=== PATIENT | male | born 1930 | race Caucasian/White ===

== ENCOUNTER 2019-07-13 09:58 | Observation (INO) ==
[2019-07-13 11:25] LABS: Basophils % 0.3 % (0.1-2.0); Eosinophils % 0.2 % (0.1-12.0); Hematocrit 49.6 % (42.0-52.0); Hemoglobin 16.2 g/dL (14.1-18.0); Lymphocytes # 0.8 K/mm3 (0.7-4.5); Lymphocytes % 6.7 % (10-50); Mean Corpuscular HGB Conc 32.6 g/dL (31.8-35.4); Mean Corpuscular Volume 91.6 fl (80-94); Mean Platelet Volume 7.1 fl (7.4-10.4); Monocytes # 1.1 K/mm3 (0.1-1.0); Monocytes % 9.2 % (1.7-9.3); Neutrophils # 10.3 K/mm3 (1.8-7.8); Neutrophils % 83.6 % (37.0-80.0); Platelet Count 240 K/mm3 (142-424); Red Blood Count 5.42 M/mm3 (4.60-6.20); Red Cell Distribution Width 15.2 % (11.5-17.5); White Blood Count 12.3 K/mm3 (4.8-10.8)
[2019-07-13 11:35] LABS: Albumin Level 3.6 gm/dL (3.4-5.0); Albumin/Globulin Ratio 0.9 (1.1-1.8); Anion Gap 15.6 mEq/L (5-15); Bilirubin,Total 1.2 mg/dL (0.2-1.0); Calcium 9.5 mg/dL (8.5-10.1); Total Protein,Serum 7.6 gm/dL (6.4-8.2)
--- NOTE | 2019-07-13 12:05 | Pharmacy Consult Notes ---
[facility] Pharmacy VTE Monitoring - Patient Demographics Admission date: 07/13/19 Report Date: 07/13/19 Time: 12:05 Allergies/Adverse Reactions: Patient Allergies Penicillins Allergy (Verified 05/19/19 14:17) Height: 1.7 m Weight: 78.188 kg - VTE Risk Labs: VTE Related Lab Results Hgb 16.2 g/dL (14.1-18.0) 07/13/19 11:00 Hct 49.6 % (42.0-52.0) 07/13/19 11:00 Plt Count 240 K/mm3 (142-424) 07/13/19 11:00 BUN 24 mg/dL (7-18) H 07/13/19 11:00 Creatinine 1.81 mg/dL (0.70-1.30) H 07/13/19 11:00 Estimated Creat Clear 31 mL/min (50-200) 07/13/19 11:00 Was VTE Risk Assessment Performed: Yes VTE Score: 2 Clinical Trial Participant: No - Prophylaxis VTE Prophylaxis Ordered?: Yes Types of VTE Prophylaxis: TEDS Knee High
--- NOTE | 2019-07-13 12:58 | History & Physical Report ---
*Admission Date: 07/13/19 <Beverly Ruvalcaba 07/13/19 13:04> *Chief complaint: AMS, vomiting/diarrhea <Andrew Ruvalcaba07/13/19 13:04> *History of present illness: Mr. Brown is an 88-year-old male who presented to the office of [facility] today with 2 days of altered mental status, weakness, vomiting and diarrhea, and a cough. His urinalysis showed trace amounts of blood and protein. He appeared very dehydrated. His blood pressure was low at 90/50 and it was felt he would need admission for IV fluids and further testing. The patient was seen by both Dr. Ervin and Dr. Arriaga. <Beverly Ruvalcaba 07/13/19 13:04> [facility] History I have reviewed the patient's past medical history: Yes <Beverly Ruvalcaba 07/13/19 13:04> Medical History: Reports:: Atrial Fibrillation, Cardiomyopathy, Congestive Heart Failure, Hyperlipidemia, Hypertension, Renal Insufficiency, Valvular Heart Disease Denies:: Cancer, Diabetes Mellitus Type 1, Diabetes Mellitus Type 2, Internal Pacemaker, MRSA, Seizures <Andrew Ruvalcaba07/13/19 13:04> *Have you ever received a pneumonia vaccine?: Yes <Beverly Ruvalcaba 07/13/19 13:04> *Have you received a flu vaccine this season?: Yes <Andrew Ruvalcaba07/13/19 13:04> Other Medical History: Reports: Arthritis. Denies: Blood Transfusion Reaction <Beverly Ruvalcaba 07/13/19 13:04> Laterality Cases: Left: Other <Beverly Ruvalcaba 07/13/19 13:04> Other Surgeries: Yes: Cardiac Catheterization, Cholecystectomy, Skin Cancer Excision, Other (Prostate removed, cystoscopy). No: Pacemaker <Beverly Ruvalcaba 07/13/19 13:04> Amputation: No <Beverly Ruvalcaba 07/13/19 13:04> Fractures: No <Andrew Ruvalcaba07/13/19 13:04> - *Social History Educational Level: Attended Grade School <Beverly Ruvalcaba 07/13/19 13:04> Smoking Status: Former smoker <Beverly Ruvalcaba 07/13/19 13:04> Tobacco Type: cigarettes <Beverly Ruvalcaba 07/13/19 13:04> [facility] Intake: never [facility]> Alcohol Intake Frequency:: other [facility] 13:04> Substance Use Type: denies use <[facility] 07/13/[facility] 13:04> *Occupational Status:: retired <[facility] 07/13/19 13:04> Housing: house <[facility] 07/13/[facility] 13:04> Household Members: none <[facility] 07/13/[facility] 13:04> *Travel in the last 8 weeks: None <[facility] 07/13/19 13:04> Family Hx:: Hyperlipidemia, Hypertension <[facility] 07/13/19 13:04> Review of Systems - Constitutional Reports fatigue, Reports weakness, Denies body ache(s), Denies fever(s) <[facility] 07/13/19 13:04> - Eyes Denies blurry vision, Denies double vision <[facility] 07/13/19 13:04> - ENT Denies nasal congestion, Denies sore throat <[facility] 07/13/19 13:04> - *Cardiovascular Reports shortness of breath, Denies chest pain at rest <[facility] 07/13/19 13:04> - *Respiratory Reports cough, Reports shortness of breath, Reports wheezing <[facility] 07/13/19 13:04> - *Gastrointestinal Reports loose stools, Reports nausea, Reports vomiting, Denies abdominal pain <[facility]/13[facility] 13:04> - *Genitourinary Reports urinary frequency, Denies difficulty urinating, Denies painful urination <[facility] 07/13/19 13:04> - *Musculoskeletal Denies joint pain <[facility]/13/19 13:04> - *Neurologic Reports unsteadiness, Reports weakness, Denies headache(s) <[facility] 07/13/19 13:04> Meds Home Medications Medication Instructions Recorded Confirmed Type Tramadol HCl [Ultram 50mg tablet] 100 mg PO Q6HP PRN 07/20/17 07/13/19 History Digoxin [Digoxin 0.125mg Tablet] 125 mcg PO DAILY 04/12/19 07/13/19 History Rivaroxaban [Xarelto 15mg tablet] 15 mg PO PM 04/12/19 07/13/19 History Spironolactone [Aldactone 25mg 25 mg PO DAILY 04/12/19 07/13/19 History Tab] lisinopriL [Zestril 2.5mg Tablet] 2.5 mg PO DAILY 04/12/19 07/13/19 History Furosemide [Furosemide 40MG tAB] 40 mg PO DAILY 07/13/19 07/13/19 History Metoprolol Succinate 100 mg PO DAILY 07/13/19 07/13/19 History <Sanjay Ervin - 07/13/19 13:37> Allergies Allergy/AdvReac Type Severity Reaction Status Date / Time Penicillins Allergy Verified 05/19/19 14:17 <Sanjay Ervin - 07/13/19 13:37> Exam Vital signs and Labs for Last 24 Hours: Temp Pulse Resp BP Pulse Ox 98.4 F 95 H 18 102/66 L 91 L 07/13/19 11:07 07/13/19 11:07 07/13/19 11:07 07/13/19 11:07 07/13/19 11:07 Laboratory Results - last 24 hr 07/13/19 11:00: WBC 12.3 H, RBC 5.42, Hgb 16.2, Hct 49.6, MCV 91.6, MCH 29.9, MCHC 32.6, RDW 15.2, Plt Count 240, MPV 7.1 L, Neut % (Auto) 83.6 H, Lymph % (Auto) 6.7 L, [place] % (Auto) 9.2, Eos % (Auto) 0.2, Baso % (Auto) 0.3, Neut # (Auto) 10.3 H, Lymph # (Auto) 0.8, [place] # (Auto) 1.1 H, Eos # (Auto) 0.0, Baso # (Auto) 0.0 07/13/19 11:00: Sodium 137, Potassium 4.6, Chloride 100, Carbon Dioxide 26, Anion Gap 15.6 H, BUN 24 H, Creatinine 1.81 H, Estimated Creat Clear 31, Estimated GFR 35 L, Est GFR ( Amer) 43 L, Glucose 112 H, Calcium 9.5, Total Bilirubin 1.2 H, AST 21, ALT 21, Alkaline Phosphatase 48, Total Protein 7.6, Albumin 3.6, Globulin 4.0 H, Albumin/Globulin Ratio 0.9 L 07/13/19 11:00: Lactate 1.4 <AzizaSanjay - 07/13/19 13:37> Temp Pulse Resp BP Pulse Ox 98.4 F 95 H 18 102/66 L 91 L 07/13/19 11:07 07/13/19 11:07 07/13/19 11:07 07/13/19 11:07 07/13/19 11:07 Laboratory Results - last 24 hr 07/13/19 11:00: WBC 12.3 H, RBC 5.42, Hgb 16.2, Hct 49.6, MCV 91.6, MCH 29.9, MCHC 32.6, RDW 15.2, Plt Count 240, MPV 7.1 L, Neut % (Auto) 83.6 H, Lymph % (Auto) 6.7 L, [place] % (Auto) 9.2, Eos % (Auto) 0.2, Baso % (Auto) 0.3, Neut # (Auto) 10.3 H, Lymph # (Auto) 0.8, [place] # (Auto) 1.1 H, Eos # (Auto) 0.0, Baso # (Auto) 0.0 07/13/19 11:00: Sodium 137, Potassium 4.6, Chloride 100, Carbon Dioxide 26, An ion Gap 15.6 H, BUN 24 H, Creatinine 1.81 H, Estimated Creat Clear 31, Estimated GFR 35 L, Est GFR ( Amer) 43 L, Glucose 112 H, Calcium 9.5, Total Bilirubin 1.2 H, AST 21, ALT 21, Alkaline Phosphatase 48, Total Protein 7.6, Albumin 3.6, Globulin 4.0 H, Albumin/Globulin Ratio 0.9 L 07/13/19 11:00: Lactate 1.4 <Beverly Ruvalcaba - 07/13/19 13:04> I & O for Last 24 hours: Intake & Output 07/11/19 07/12/19 07/13/1920 11:59 11:59 11:59 11:59 Weight 172 lb 6 oz <Sanjay Ervin 07/13/19 13:37> Intake & Output 07/11/19 07/12/19 07/13/19 07/14/19 11:59 11:59 11:59 11:59 Weight 172 lb 6 oz <Beverly Ruvalcaba 07/13/19 13:04> - Constitutional Comments: Does not appear to feel well <Beverly Ruvalcaba 07/13/19 13:04> - *Routine HEENT Exam Head: Present: normocephalic <SidneycourtneyBeverly - 07/13/19 13:04> Eye: Present: EOMI, PERRL <SidneycourtneyBeverly - 07/13/19 13:04> ENT: Present: mucous membranes dry <SidneycourtneyBeverly 07/13/19 13:04> - *Routine Neck Exam Present: supple. Absent: lymphadenopathy <JordonBeverly - 07/13/19 13:04> - *Routine Respiratory Exam Present: wheezes. Absent: rales <JordonBeverly - 07/13/19 13:04> - *Routine Cardiovascular Exam Present: RRR, irregularly irregular <SidneycourtneyBeverly 07/13/19 13:04> - *Routine Abdominal Exam Present: soft, normoactive bowel sounds. Absent: tenderness <JordonBeverly - 07/13/19 13:04> - *Routine Extremities Exam Present: edema (1+ leg edema bilaterally). Absent: cyanosis, clubbing <JordonBeverly - 07/13/19 13:04> - *Routine Skin Exam Present: pallor, warm. Absent: rash <JordonBeverly - 07/13/19 13:04> - *Routine Neurological Exam Present: alert <JordonBeverly 07/13/19 13:04> Awake and can answer questions, but gets very confused <JordonBeverly - 07/13/19 13:04> H&P: Result - Impressions CXR - Minimal left basilar atelectasis otherwise negative <JordonBeverly - 07/13/19 13:04> Assessment and Plan (1) Vomiting and diarrhea Current visit: Yes Status: Acute Category: Medical Code(s): R11.10 - Vomiting, unspecified; R19.7 - Diarrhea, unspecified (2) Wheezing Current visit: Yes Status: Acute Category: Medical Code(s): R06.2 - Wheezing (3) Dehydration Current visit: Yes Status: Acute Category: Medical Code(s): E86.0 - Dehydration (4) Altered mental status Current visit: Yes Status: Acute Category: Medical Code(s): R41.82 - Altered mental status, unspecified (5) Atrial fibrillation Current visit: No Status: Chronic Qualifiers: Atrial fibrillation type: chronic Category: Medical Code(s): I48.91 - Unspecified atrial fibrillation (6) Cardiomyopathy Current visit: No Status: Chronic Qualifiers: Cardiomyopathy type: dilated Qualified Code(s): I42.0 - Dilated cardiomyopathy Category: Medical Code(s): I42.9 - Cardiomyopathy, unspecified (7) HLD (hyperlipidemia) Current visit: No Status: Chronic Qualifiers: Hyperlipidemia type: mixed hyperlipidemia Qualified Code(s): E78.2 - Mixed hyperlipidemia Category: Medical Code(s): E78.5 - Hyperlipidemia, unspecified (8) HTN (hypertension) Current visit: No Status: Chronic Qualifiers: Hypertension type: essential hypertension Qualified Code(s): I10 - Essential (primary) hypertension Category: Medical Code(s): I10 - Essential (primary) hypertension (9) Severe left ventricular systolic dysfunction Current visit: No Status: Chronic Category: Medical Code(s): I51.9 - Heart disease, unspecified <Beverly Ruvalcaba - 07/13/19 12:54> (1) Altered mental status Current visit: Yes Status: Acute Category: Medical Code(s): R41.82 - Altered mental status, unspecified (2) Vomiting and diarrhea Current visit: Yes Status: Acute Category: Medical Code(s): R11.10 - Vomiting, unspecified; R19.7 - Diarrhea, unspecified (3) Dehydration Current visit: Yes Status: Acute Category: Medical Code(s): E86.0 - Dehydration (4) Wheezing Current visit: Yes Status: Acute Category: Medical Code(s): R06.2 - Wheezing (5) Atrial fibrillation Current visit: No Status: Chronic Qualifiers: Atrial fibrillation type: chronic Category: Medical Code(s): I48.91 - Unspecified atrial fibrillation (6) Cardiomyopathy Current visit: No Status: Chronic Qualifiers: Cardiomyopathy type: dilated Qualified Code(s): I42.0 - Dilated cardiomyopathy Category: Medical Code(s): I42.9 - Cardiomyopathy, unspecified (7) HLD (hyperlipidemia) Current visit: No Status: Chronic Qualifiers: Hyperlipidemia type: mixed hyperlipidemia Qualified Code(s): E78.2 - Mixed hyperlipidemia Category: Medical Code(s): E78.5 - Hyperlipidemia, unspecified (8) HTN (hypertension) Current visit: No Status: Chronic Qualifiers: Hypertension type: essential hypertension Qualified Code(s): I10 - Essential (primary) hypertension Category: Medical Code(s): I10 - Essential (primary) hypertension (9) Severe left ventricular systolic dysfunction Current visit: No Status: Chronic Category: Medical Code(s): I51.9 - Heart disease, unspecified <Sanjay Ervin - 07/13/19 13:37> - Assessment and plan all Dx Assessment and Plan for all problems:: Patient seen and examined. Concur with plan for admission for work-up of his altered mental status. Likely related to acute gastroenteritis with dehydration and hypovolemia. Will rule out other potential infectious etiologies. May require CT scan of head if he does not respond to rehydration. <Sanjay Ervin - 07/13/19 13:37> CXR did not show a pneumonia. CBC showed an elevated WBC. We will go ahead and start on Levaquin as well as IV fluids and some Zofran. We will get a diarrhea panel and blood cultures. <Beverly Ruvalcaba - 07/13/19 13:04>
--- NOTE | 2019-07-14 08:11 | Progress Note ---
<Beverly Ruvalcaba - Last Filed: 07/14/19 08:10> Internal Medicine - PN: Subj *Date: 07/14/19 *Time: 08:10 Interval history: Patient seems to be doing much better today. He is more alert and awake. He states his vomiting has stopped and he has still had a few loose stools since admission. He has had a slightly productive cough but no shortness of breath. He slept decently last night and ate some breakfast this morning. He is requesting some "real food." Exam Vital signs and Labs for Last 24 Hours: Temp Pulse Resp BP Pulse Ox 99.7 F H 91 H 16 122/81 91 L 07/14/19 04:00 07/14/19 06:02 07/14/19 04:00 07/14/19 04:00 07/14/19 06:02 Laboratory Results - last 24 hr 07/13/19 11:00: WBC 12.3 H, RBC 5.42, Hgb 16.2, Hct 49.6, MCV 91.6, MCH 29.9, MCHC 32.6, RDW 15.2, Plt Count 240, MPV 7.1 L, Neut % (Auto) 83.6 H, Lymph % (Auto) 6.7 L, [place] % (Auto) 9.2, Eos % (Auto) 0.2, Baso % (Auto) 0.3, Neut # (Auto) 10.3 H, Lymph # (Auto) 0.8, [place] # (Auto) 1.1 H, Eos # (Auto) 0.0, Baso # (Auto) 0.0 07/13/19 11:00: Sodium 137, Potassium 4.6, Chloride 100, Carbon Dioxide 26, Anion Gap 15.6 H, BUN 24 H, Creatinine 1.81 H, Estimated Creat Clear 31, Estimated GFR 35 L, Est GFR ( Amer) 43 L, Glucose 112 H, Calcium 9.5, Total Bilirubin 1.2 H, AST 21, ALT 21, Alkaline Phosphatase 48, Total Protein 7.6, Albumin 3.6, Globulin 4.0 H, Albumin/Globulin Ratio 0.9 L 07/13/19 11:00: Lactate 1.4 07/13/19 11:00: Digoxin 0.94 I & O for Last 24 hours: Intake & Output 07/11/19 07/12/19 07/13/19 07/14/19 11:59 11:59 11:59 11:59 Intake Total 2523 / 2523 Output Total 100 / 100 Balance 3 / 242 Weight 172 lb 6 oz 182 lb 8 oz - Constitutional no acute distress - *Routine Respiratory Exam Present: rales (bibasilar) - *Routine Cardiovascular Exam Present: irregularly irregular - *Routine Abdominal Exam Present: soft, normoactive bowel sounds. Absent: tenderness - *Routine Extremities Exam Absent: cyanosis, clubbing, edema - *Routine Skin Exam Present: warm. Absent: rash - *Routine Neurological Exam Present: alert, oriented X3 Assessment and Plan (1) Altered mental status Current visit: Yes Status: Acute Category: Medical Code(s): R41.82 - Altered mental status, unspecified (2) Vomiting and diarrhea Current visit: Yes Status: Acute Category: Medical Code(s): R11.10 - Vomiting, unspecified; R19.7 - Diarrhea, unspecified (3) Dehydration Current visit: Yes Status: Acute Category: Medical Code(s): E86.0 - Dehydration (4) Wheezing Current visit: Yes Status: Acute Category: Medical Code(s): R06.2 - Wheezing (5) Atrial fibrillation Current visit: No Status: Chronic Qualifiers: Atrial fibrillation type: chronic Category: Medical Code(s): I48.91 - Unspecified atrial fibrillation (6) Cardiomyopathy Current visit: No Status: Chronic Qualifiers: Cardiomyopathy type: dilated Qualified Code(s): I42.0 - Dilated cardiomyopathy Category: Medical Code(s): I42.9 - Cardiomyopathy, unspecified (7) HLD (hyperlipidemia) Current visit: No Status: Chronic Qualifiers: Hyperlipidemia type: mixed hyperlipidemia Qualified Code(s): E78.2 - Mixed hyperlipidemia Category: Medical Code(s): E78.5 - Hyperlipidemia, unspecified (8) HTN (hypertension) Current visit: No Status: Chronic Qualifiers: Hypertension type: essential hypertension Qualified Code(s): I10 - Essential (primary) hypertension Category: Medical Code(s): I10 - Essential (primary) hypertension (9) Severe left ventricular systolic dysfunction Current visit: No Status: Chronic Category: Medical Code(s): I51.9 - Heart disease, unspecified - Assessment and plan all Dx Assessment and Plan for all problems:: We will get a repeat chest x-ray today to rule out a pneumonia and will let patient have a diet. We will get repeat labs tomorrow. <Sanjay Ervin - Last Filed: 07/14/19 13:07> Internal Medicine - PN: Subj *Date: 07/14/19 *Time: 13:06 Exam Vital signs and Labs for Last 24 Hours: Temp Pulse Resp BP Pulse Ox 98.8 F 102 H 20 130/62 94 L 07/14/19 08:00 07/14/19 08:00 07/14/19 08:00 07/14/19 08:00 07/14/19 08:00 Laboratory Results - last 24 hr 07/13/19 11:00: Digoxin 0.94 07/14/19 08:01: Stl Aeromonas (PCR) Not detected, Stl C. cayetanensis PCR Not detected, Stool Rotavirus (PCR) Not detected, Stl Adenov F 40/41 PCR Not detected, Stool Astrovirus (PCR) Not detected, Stool Campylobacter PCR Not detected, Stl C.difficile Tox PCR Not detected, Stool Cryptosporidium PCR Not detected, Stl E.coli Shiga Tox PCR Not detected, Stool E coli O157 PCR Not detected, Stl Enterotoxigenic E PCR Not detected, Stool EPEC (PCR) Not detected, Stool EAEC (PCR) Not detected, Stl E. histolytica PCR Not detected, Stool Giardia Lamblia PCR Not detected, Stool Salmonella PCR Not detected, Stool Sapovirus (PCR) Not detected, Stl P. shigelloides PCR Not detected, Stl Shigella/EIEC PCR Not detected, St Y.enterocolitica PCR Not detected, Stool Vibrio (PCR) Not detected, Stl Vibrio cholerae PCR Not detected, Stl Norovirus GI/GII PCR Not detected 07/14/19 08:20: WBC 11.8 H, RBC 4.78, Hgb 14.4 D, Hct 44.6, MCV 93.2, MCH 30.1, MCHC 32.3, RDW 15.0, Plt Count 206, MPV 7.5, Neut % (Auto) 87.2 H, Lymph % (Auto) 6.4 L, [place] % (Auto) 5.9, Eos % (Auto) 0.3, Baso % (Auto) 0.2, Neut # (Auto) 10.3 H, Lymph # (Auto) 0.8, [place] # (Auto) 0.7, Eos # (Auto) 0.0, Baso # (Auto) 0.0, Total Counted 100, Neutrophils % (Manual) 87 H, Lymphocytes % (Manual) 7 L, Monocytes % (Manual) 6, Platelet Estimate Normal, RBC Morphology Normal 07/14/19 08:20: Sodium 135 L, Potassium 3.9, Chloride 100, Carbon Dioxide 25, BUN 22 H, Creatinine 1.70 H, Glucose 160 H D I & O for Last 24 hours: Intake & Output 07/12/19 07/13/19 07/14/19 07/15/19 11:59 11:59 11:59 11:59 Intake Total 3003 / 3003 Output Total 100 / 100 Balance 2903 / 2903 Weight 172 lb 6 oz 182 lb 8 oz Assessment and Plan (1) Altered mental status Current visit: Yes Status: Acute Category: Medical Code(s): R41.82 - Altered mental status, unspecified (2) Vomiting and diarrhea Current visit: Yes Status: Acute Category: Medical Code(s): R11.10 - Vomiting, unspecified; R19.7 - Diarrhea, unspecified (3) Dehydration Current visit: Yes Status: Acute Category: Medical Code(s): E86.0 - Dehydration (4) Wheezing Current visit: Yes Status: Acute Category: Medical Code(s): R06.2 - Wheezing (5) Atrial fibrillation Current visit: No Status: Chronic Qualifiers: Atrial fibrillation type: chronic Category: Medical Code(s): I48.91 - Unspecified atrial fibrillation (6) Cardiomyopathy Current visit: No Status: Chronic Qualifiers: Cardiomyopathy type: dilated Qualified Code(s): I42.0 - Dilated cardiomyopathy Category: Medical Code(s): I42.9 - Cardiomyopathy, unspecified (7) HLD (hyperlipidemia) Current visit: No Status: Chronic Qualifiers: Hyperlipidemia type: mixed hyperlipidemia Qualified Code(s): E78.2 - Mixed hyperlipidemia Category: Medical Code(s): E78.5 - Hyperlipidemia, unspecified (8) HTN (hypertension) Current visit: No Status: Chronic Qualifiers: Hypertension type: essential hypertension Qualified Code(s): I10 - Essential (primary) hypertension Category: Medical Code(s): I10 - Essential (primary) hypertension (9) Severe left ventricular systolic dysfunction Current visit: No Status: Chronic Category: Medical Code(s): I51.9 - Heart disease, unspecified - Assessment and plan all Dx Assessment and Plan for all problems:: Patient examined. Concur with above assessment and plan.
[2019-07-14 08:31] LABS: Basophils % 0.2 % (0.1-2.0); Lymphocytes % 6.4 % (10-50); Monocytes # 0.7 K/mm3 (0.1-1.0); Monocytes % 5.9 % (1.7-9.3)
[2019-07-14 08:36] LABS: Eosinophils % 0.3 % (0.1-12.0); Hematocrit 44.6 % (42.0-52.0); Lymphocytes # 0.8 K/mm3 (0.7-4.5); Mean Corpuscular HGB Conc 32.3 g/dL (31.8-35.4); Mean Corpuscular Volume 93.2 fl (80-94); Mean Platelet Volume 7.5 fl (7.4-10.4); Neutrophils # 10.3 K/mm3 (1.8-7.8); Neutrophils % 87.2 % (37.0-80.0); Platelet Count 206 K/mm3 (142-424); Red Blood Count 4.78 M/mm3 (4.60-6.20); White Blood Count 11.8 K/mm3 (4.8-10.8)
[2019-07-14 08:37] LABS: Anion Gap 13.9 mEq/L (5-15); Hemoglobin 14.4 g/dL (14.1-18.0)
[2019-07-14 09:29] LABS: Lymphocytes % 7 % (10-50); Monocytes % 6 % (2-9); Neutrophils % 87 % (42-76); Total Cells Counted 100
[2019-07-14 09:39] LABS: RBC Morphology Normal
[2019-07-14 18:36] LABS: Calcium 8.4 mg/dL (8.5-10.1)
[2019-07-15 06:58] LABS: Basophils % 0.5 % (0.1-2.0); Eosinophils # 0.1 K/mm3 (0.0-0.4); Hematocrit 42.6 % (42.0-52.0); Hemoglobin 13.7 g/dL (14.1-18.0); Lymphocytes % 14.1 % (10-50); Mean Corpuscular HGB Conc 32.3 g/dL (31.8-35.4); Mean Corpuscular Volume 92.9 fl (80-94); Mean Platelet Volume 7.6 fl (7.4-10.4); Monocytes # 0.8 K/mm3 (0.1-1.0); Monocytes % 10.1 % (1.7-9.3); Neutrophils # 5.5 K/mm3 (1.8-7.8); Neutrophils % 74.3 % (37.0-80.0); Platelet Count 204 K/mm3 (142-424); Red Blood Count 4.58 M/mm3 (4.60-6.20); Red Cell Distribution Width 15.2 % (11.5-17.5); White Blood Count 7.4 K/mm3 (4.8-10.8)
[2019-07-15 07:26] LABS: Anion Gap 11.9 mEq/L (5-15); Calcium 8.5 mg/dL (8.5-10.1); Prostate Specific Ag Screen 2.1 ng/mL (0.0-4.0)
--- NOTE | 2019-07-15 08:03 | Progress Note ---
<Beverly Ruvalcaba - Last Filed: 07/15/19 08:01> Internal Medicine - PN: Subj *Date: 07/15/19 *Time: 08:01 Interval history: Patient states he is feeling much better today. He slept well and ate a good breakfast. He denies any pain. No further vomiting or diarrhea. Exam Vital signs and Labs for Last 24 Hours: Temp Pulse Resp BP Pulse Ox 98.5 F 97 H 19 142/84 H 97 07/15/19 04:00 07/15/19 06:00 07/15/19 04:00 07/15/19 04:00 07/15/19 06:00 Laboratory Results - last 24 hr 07/14/19 08:01: Stl Aeromonas (PCR) Not detected, Stl C. cayetanensis PCR Not detected, Stool Rotavirus (PCR) Not detected, Stl Adenov F 40/41 PCR Not detected, Stool Astrovirus (PCR) Not detected, Stool Campylobacter PCR Not detected, Stl C.difficile Tox PCR Not detected, Stool Cryptosporidium PCR Not detected, Stl E.coli Shiga Tox PCR Not detected, Stool E coli O157 PCR Not detected, Stl Enterotoxigenic E PCR Not detected, Stool EPEC (PCR) Not detected, Stool EAEC (PCR) Not detected, Stl E. histolytica PCR Not detected, Stool Giardia Lamblia PCR Not detected, Stool Salmonella PCR Not detected, Stool Sapovirus (PCR) Not detected, Stl P. shigelloides PCR Not detected, Stl Shigella/EIEC PCR Not detected, St Y.enterocolitica PCR Not detected, Stool Vibrio (PCR) Not detected, Stl Vibrio cholerae PCR Not detected, Stl Norovirus GI/GII PCR Not detected 07/14/19 08:20: WBC 11.8 H, RBC 4.78, Hgb 14.4 D, Hct 44.6, MCV 93.2, MCH 30.1, MCHC 32.3, RDW 15.0, Plt Count 206, MPV 7.5, Neut % (Auto) 87.2 H, Lymph % (Auto) 6.4 L, Lucas % (Auto) 5.9, Eos % (Auto) 0.3, Baso % (Auto) 0.2, Neut # (Auto) 10.3 H, Lymph # (Auto) 0.8, Lucas # (Auto) 0.7, Eos # (Auto) 0.0, Baso # (Auto) 0.0, Total Counted 100, Neutrophils % (Manual) 87 H, Lymphocytes % (Manual) 7 L, Monocytes % (Manual) 6, Platelet Estimate Normal, RBC Morphology Normal 07/14/19 08:20: Sodium 135 L, Potassium 3.9, Chloride 100, Carbon Dioxide 25, Anion Gap 13.9, BUN 22 H, Creatinine 1.70 H, Estimated Creat Clear 34, Estimated GFR 38 L, Est GFR ( Amer) 46 L, Glucose 160 H D, Calcium 8.4 L D 07/15/19 06:45: WBC 7.4 D, RBC 4.58 L, Hgb 13.7 L, Hct 42.6, MCV 92.9, MCH 30.0, MCHC 32.3, RDW 15.2, Plt Count 204, MPV 7.6, Neut % (Auto) 74.3, Lymph % (Auto) 14.1, Lucas % (Auto) 10.1 H, Eos % (Auto) 1.0, Baso % (Auto) 0.5, Neut # (Auto) 5.5, Lymph # (Auto) 1.0, Lucas # (Auto) 0.8, Eos # (Auto) 0.1, Baso # (Auto) 0.0 07/15/19 06:45: Sodium 139, Potassium 3.9, Chloride 105, Carbon Dioxide 26, Anion Gap 11.9, BUN 22 H, Creatinine 1.54 H, Estimated Creat Clear 37, Estimated GFR 43 L, Est GFR ( Amer) 52 L, Glucose 105 D, Calcium 8.5, PSA Screen 2.1 I & O for Last 24 hours: Intake & Output 07/12/19 07/13/19 07/14/19 07/15/19 11:59 11:59 11:59 11:59 Intake Total 3103 / 3103 2335 / 2335 Output Total 100 / 100 3850 / 3850 Balance 3003 / 3003 -1515 / -1515 Weight 172 lb 6 oz 182 lb 8 oz 177 lb 6 oz - Constitutional no acute distress - *Routine Respiratory Exam Present: CTA bilaterally - *Routine Cardiovascular Exam Present: irregularly irregular - *Routine Abdominal Exam Present: soft, normoactive bowel sounds. Absent: tenderness - *Routine Extremities Exam Present: edema (1+ LE edema bilaterally). Absent: cyanosis, clubbing - *Routine Skin Exam Present: warm. Absent: rash - *Routine Neurological Exam Present: alert, oriented X3 Assessment and Plan (1) Altered mental status Status: Acute Category: Medical Code(s): R41.82 - Altered mental status, unspecified (2) Vomiting and diarrhea Status: Acute Category: Medical Code(s): R11.10 - Vomiting, unspecified; R19.7 - Diarrhea, unspecified (3) Dehydration Status: Acute Category: Medical Code(s): E86.0 - Dehydration (4) Wheezing Status: Acute Category: Medical Code(s): R06.2 - Wheezing (5) Atrial fibrillation Status: Chronic Qualifiers: Atrial fibrillation type: chronic Category: Medical Code(s): I48.91 - Unspecified atrial fibrillation (6) Cardiomyopathy Status: Chronic Qualifiers: Cardiomyopathy type: dilated Qualified Code(s): I42.0 - Dilated cardiomyopathy Category: Medical Code(s): I42.9 - Cardiomyopathy, unspecified (7) HLD (hyperlipidemia) Status: Chronic Qualifiers: Hyperlipidemia type: mixed hyperlipidemia Qualified Code(s): E78.2 - Mixed hyperlipidemia Category: Medical Code(s): E78.5 - Hyperlipidemia, unspecified (8) HTN (hypertension) Status: Chronic Qualifiers: Hypertension type: essential hypertension Qualified Code(s): I10 - Essential (primary) hypertension Category: Medical Code(s): I10 - Essential (primary) hypertension (9) Severe left ventricular systolic dysfunction Status: Chronic Category: Medical Code(s): I51.9 - Heart disease, unspecified - Assessment and plan all Dx Assessment and Plan for all problems:: Patient's renal function has improved and his white blood cell count has normalized. His diarrhea panel was negative and his chest x-ray showed no pneumonia. Possible discharge home soon. We will saline lock today as he has developed some lower extremity edema. <Sanjay Ervin - Last Filed: 07/15/19 17:33> Internal Medicine - PN: Subj *Date: 07/15/19 *Time: 17:32 Exam Vital signs and Labs for Last 24 Hours: Temp Pulse Resp BP Pulse Ox 98.1 F 99 H 22 127/63 100 07/15/19 08:00 07/15/19 08:00 07/15/19 08:00 07/15/19 08:00 07/15/19 08:00 Laboratory Results - last 24 hr 07/14/19 08:20: Anion Gap 13.9, Estimated Creat Clear 34, Estimated GFR 38 L, Est GFR ( Amer) 46 L, Calcium 8.4 L D 07/15/19 06:45: WBC 7.4 D, RBC 4.58 L, Hgb 13.7 L, Hct 42.6, MCV 92.9, MCH 30.0, MCHC 32.3, RDW 15.2, Plt Count 204, MPV 7.6, Neut % (Auto) 74.3, Lymph % (Auto) 14.1, Lucas % (Auto) 10.1 H, Eos % (Auto) 1.0, Baso % (Auto) 0.5, Neut # (Auto) 5.5, Lymph # (Auto) 1.0, Lucas # (Auto) 0.8, Eos # (Auto) 0.1, Baso # (A uto) 0.0 07/15/19 06:45: Sodium 139, Potassium 3.9, Chloride 105, Carbon Dioxide 26, Anion Gap 11.9, BUN 22 H, Creatinine 1.54 H, Estimated Creat Clear 37, Estimated GFR 43 L, Est GFR ( Amer) 52 L, Glucose 105 D, Calcium 8.5, PSA Screen 2.1 I & O for Last 24 hours: Intake & Output 07/13/19 07/14/19 07/15/19 07/16/19 11:59 11:59 11:59 11:59 Intake Total 3103 / 3103 2575 / 2575 Output Total 100 / 100 4550 / 4550 Balance 3003 / 3003 -1974 / Weight 172 lb 6 oz 182 lb 8 oz 177 lb 6 oz Microbiology Reports for the Last 24 Hours: Microbiology 07/13/19 11:00 Blood Blood Culture - Preliminary NO GROWTH AFTER 48 HOURS 07/13/19 11:00 Blood Blood Culture - Preliminary NO GROWTH AFTER 48 HOURS Assessment and Plan (1) Altered mental status Status: Acute Category: Medical Code(s): R41.82 - Altered mental status, unspecified (2) Vomiting and diarrhea Status: Acute Category: Medical Code(s): R11.10 - Vomiting, unspecified; R19.7 - Diarrhea, unspecified (3) Dehydration Status: Acute Category: Medical Code(s): E86.0 - Dehydration (4) Wheezing Status: Acute Category: Medical Code(s): R06.2 - Wheezing (5) Atrial fibrillation Status: Chronic Qualifiers: Atrial fibrillation type: chronic Category: Medical Code(s): I48.91 - Unspecified atrial fibrillation (6) Cardiomyopathy Status: Chronic Qualifiers: Cardiomyopathy type: dilated Qualified Code(s): I42.0 - Dilated cardiomyopathy Category: Medical Code(s): I42.9 - Cardiomyopathy, unspecified (7) HLD (hyperlipidemia) Status: Chronic Qualifiers: Hyperlipidemia type: mixed hyperlipidemia Qualified Code(s): E78.2 - Mixed hyperlipidemia Category: Medical Code(s): E78.5 - Hyperlipidemia, unspecified (8) HTN (hypertension) Status: Chronic Qualifiers: Hypertension type: essential hypertension Qualified Code(s): I10 - Essential (primary) hypertension Category: Medical Code(s): I10 - Essential (primary) hypertension (9) Severe left ventricular systolic dysfunction Status: Chronic Category: Medical Code(s): I51.9 - Heart disease, unspecified - Assessment and plan all Dx Assessment and Plan for all problems:: Patient seen and examined this morning. He looks and feels much better. He rested well last night. No further vomiting or diarrhea. His appetite is normal. He is having no issues with urination this morning. His PSA was normal. Repeat chest x-ray yesterday showed no developing pneumonia. He is stable for discharge today.
--- NOTE | 2019-07-15 15:55 | Electrocardiograph Report ---
APPROVED REPORT Exam: Resting ECG HR:84 bpm ECG Measurements Heart Rate 84 AXES QRSd 126 QRS -49 QT 358 T140 QTc 423 <Conclusion> Atrial Fibrillation,PVC'S vs Aberrancy Left axis deviation Left bundle branch block Abnormal ECG Electronically signed by : Boaz Healy, 07/15/2019 15:54:39
--- NOTE | 2019-07-18 16:24 | Discharge Summary ---
General - General Admission date:: 07/13/19 Discharge date: 07/15/19 HPI HPI: Mr. Brown is an 88-year-old male who presented to the office of [facility] with 2 days of altered mental status, weakness, vomiting and diarrhea, and a cough. His urinalysis showed trace amounts of blood and protein. He appeared very dehydrated. His blood pressure was low at 90/50 and it was felt he would need admission for IV fluids and further testing. The patient was seen by both Dr. Ervin and Dr. Arriaga. Hospital Course Hospital Course: The patient's initial chest x-ray showed minimal left basilar atelectasis but no pneumonia. He was given a 500 mL bolus of IV fluids and then started on normal saline 100 mL/h. It was felt he had acute gastroenteritis with dehydration and hypovolemia. His CBC did show an elevated white blood cell count, therefore he was started on Levaquin empirically as well as some Zofran. A diarrhea panel was ordered and was negative. The patient had a repeat chest x-ray showing nothing acute. He became much more awake and alert after receiving IV fluids. His vomiting stopped and his diarrhea slowed. He was hungry and was able to tolerate a regular diet. His white blood cell count normalized and his renal function improved. His diarrhea resolved and he was anxious to go home. He was stable to be discharged home on his current home medications. He will follow-up in the office with Dr. Ervin. Objective Vital signs: Temp Pulse Resp BP Pulse Ox 98.1 F 99 H 22 127/63 100 07/15/19 08:00 07/15/19 08:00 07/15/19 08:00 07/15/19 08:00 07/15/19 08:00 Narrative: - Constitutional no acute distress - *Routine Respiratory Exam Present: CTA bilaterally - *Routine Cardiovascular Exam Present: irregularly irregular - *Routine Abdominal Exam Present: soft, normoactive bowel sounds. Absent: tenderness - *Routine Extremities Exam Present: edema (1+ LE edema bilaterally). Absent: cyanosis, clubbing - *Routine Skin Exam Present: warm. Absent: rash - *Routine Neurological Exam Present: alert, oriented X3 DS: Diagnosis - Discharge Diagnosis (1) Altered mental status Status: Acute (2) Vomiting and diarrhea Status: Acute (3) Dehydration Status: Acute (4) Wheezing Status: Acute (5) Atrial fibrillation Status: Chronic (6) Cardiomyopathy Status: Chronic (7) HLD (hyperlipidemia) Status: Chronic (8) HTN (hypertension) Status: Chronic (9) Severe left ventricular systolic dysfunction Status: Chronic Discharge Plan - Patient Discharge Instructions ACTIVITY: Continue current activity DIET: continue same diet Patient Instructions: Diarrhea, DI for Dehydration -- Adult, DI for Nausea -- Adult, DI for Altered Mental Status - Follow up Plan Follow up with: Sanjay Ervin MD [Primary Care Provider] - 07/22/19 10:30 am Disposition: Home, Self-Nursing Home Medications: Home Medications Medication Instructions Recorded Confirmed Type Digoxin [Digoxin 0.125mg Tablet] 125 mcg PO DAILY 04/12/19 07/13/19 History Rivaroxaban [Xarelto 15mg tablet] 15 mg PO PM 04/12/19 07/13/19 History Spironolactone [Aldactone 25mg 25 mg PO DAILY 04/12/19 07/13/19 History Tab] lisinopriL [Zestril 2.5mg Tablet] 2.5 mg PO DAILY 04/12/19 07/13/19 History Furosemide [Furosemide 40MG tAB] 40 mg PO DAILY 07/13/19 07/13/19 History Metoprolol Succinate 100 mg PO DAILY 07/13/19 07/13/19 History Tramadol HCl [Tramadol 50mg 100 mg PO Q6HP PRN 07/14/19 07/14/19 History Tab] Prescriptions/Medication Reconciliation: Continued Spironolactone [Aldactone 25mg Tab] 25 mg PO DAILY lisinopriL [Zestril 2.5mg Tablet] 2.5 mg PO DAILY Digoxin [Digoxin 0.125mg Tablet] 125 mcg PO DAILY Furosemide [Furosemide 40MG tAB] 40 mg PO DAILY Rivaroxaban [Xarelto 15mg tablet] 15 mg PO PM Metoprolol Succinate 100 mg PO DAILY Tramadol HCl [Tramadol 50mg Tab] 100 mg PO Q6HP PRN PRN Reason: Moderate Pain - Problem Reconciliation Problems Reviewed?: Yes
== END 2019-07-15 12:25 | disposition home or self-care (01) ==
LOC: 2ND
PROVIDERS: ADMIT Family Medicine; ATTEND Family Medicine
CPT/HCPCS: 36415; 71020; 71046; 80048; 80053; 80162; 83605; 85007; 85025; 87040; 87507; 93005; 94640; 94761; G0103; G0378; J1956